=== PATIENT | female | born 1980 | race Caucasian/White ===

== ENCOUNTER 2021-04-14 09:58 | Emergency (ER) | payer OTHER ==
[2021-04-14 10:13] VITALS: BP 122/79; PULSE 64; TEMP 98; BMI 26.9
[2021-04-14] MEDS ORDERED: DIPHTH,PERTUSS(ACELL),TET 0.5 ML DISP.SYRIN IM ONE ×2 (11:52→11:53)
[2021-04-14] MEDS ORDERED: IBUPROFEN 600 MG TABLET (FP) PO ONE ×2 (11:52→11:53)
== END 2021-04-14 12:11 | disposition home or self-care (01) ==
LOC: JERFT 09:58
PROC: 3E0234Z Introduction of Serum, Toxoid and Vaccine into Muscle, Percutaneous Approach (ICD-10-PCS; principal; 2021-04-14)
DX: S51.852A Open bite of left forearm, initial encounter (principal); W50.3XXA Accidental bite by another person, initial encounter
CPT/HCPCS: 73090-TC-LT-FY; 90715; 99284-25